=== PATIENT | male | born 1950 | race Caucasian/White ===

== ENCOUNTER → 2017-04-15 | Outpatient (CLI) | payer OTHER | LOC: BHFA 14:15 | PROVIDERS: ATTEND Internal Medicine Interventional Cardiology | DX: E78.5 Hyperlipidemia, unspecified (principal); Z95.0 Presence of cardiac pacemaker ==

== ENCOUNTER 2017-12-20 23:15 | Inpatient (IN) | payer OTHER ==
[2017-12-20] MEDS ORDERED: ONDANSETRON DISINTEGRATING 4 MG TAB PO PRN (23:28)
[2017-12-20] MEDS ORDERED: MAGNESIUM HYDROXIDE 30 ML UDCUP PO PRN (23:28)
[2017-12-20] MEDS ORDERED: LACTULOSE 20 GM/30 ML UDCUP PO PRN (23:28)
[2017-12-20] MEDS ORDERED: BISACODYL 10 MG SUPP PR PRN (23:28)
[2017-12-20] MEDS ORDERED: ONDANSETRON 4 MG/2 ML VIAL IVP PRN (23:28)
[2017-12-20] MEDS ORDERED: NS 1,000 ML IV SCH (23:28)
[2017-12-20] MEDS ORDERED: LORazepam 2 MG/ML INJ IVP PRN (23:28)
[2017-12-20] MEDS ORDERED: ACETAMINOPHEN 325 MG TAB PO PRN (23:28)
[2017-12-20] MEDS ORDERED: POLYETHYLENE GLYCOL 3350 17 GM PKT PO PRN (23:28)
[2017-12-20] MEDS: OXYCODONE/APAP 5/325 TAB PO PRN (23:50)
[2017-12-21] MEDS ORDERED: HYDROmorphone HCL/NS 0.5 MG/ML SYR IVP PRN (00:26)
[2017-12-21] MEDS: OXYMETAZOLINE 30 ML NASAL SPRAY EACHNARE SCH ×3 (00:32→22:23)
--- NOTE | 2017-12-21 00:58 | GHP ---
[f rep st] HISTORY AND PHYSICAL DATE OF ADMISSION: 12/20/2017 CHIEF COMPLAINT: Hip fracture, leg pain, ankle pain. HISTORY OF PRESENT ILLNESS: This patient is a 67-year-old gentleman who was skiing near [place] in [place] and unfortunately crashed into a tree. He hit with his right hip. He was wearing a helmet. After an difficult extraction from accident site he was ultimately transported back to [place], [place]. His accident occurred approximately 1:30pm on December 19, 2017 corrected for our local time. . I am seeing him at bedside, and I received report from the transporting service. He has done well on his transport except for severe pain. He has been given 5 mg of morphine hourly. He has had low oxygen saturations and has needed to be on oxygen, but has corrected well. He is being admitted to the hospital with plans for total hip replacement tomorrow with Dr. Pettit. He currently does not have chest pain or shortness of breath. He does have a little bit of dry cough. He does have a dry stuffy nose. PAST MEDICAL HISTORY: Significant for multiple orthopedic injuries and surgeries. 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 He has followed with our local ID docs, and also Cardiology (Dr. Vallejo) for this. He has had multiple episodes of diverticulitis (>4 and likely will need surgery at some point). He wears a hearing aid, which he does not have today as unfortunately it was not transported in the heat of the moment. I REVIEW OF SYSTEMS: As above. FAMILY HISTORY: Not pertinent FH for his current situation. SOCIAL HISTORY: He is . His is at bedside. He has no drug or alcohol problem. IMMUNIZATIONS: He has had the recent flu shot. He has had Prevnar and Pneumovax 23. His last tetanus appears to be in 2008, although he may have had something newer; that is the newest I can find in his chart. MEDICATIONS: Penicillin-Vee K 500 mg twice a day, melatonin p.r.n. sleep. ALLERGIES: No known drug allergies. PHYSICAL EXAMINATION: VITAL SIGNS: Current stable, he is afebrile. GENERAL: He is in a fair amount of pain. Transfer from stretcher to bed was extremely excruciating for him with screaming. NEUROLOGIC: Cranial nerves 2-12 are grossly intact, other than his hearing. He does not have his hearing aid but is still able to have a conversation. He also is wearing glasses; he cannot see well without this. HEENT: Oropharynx is very dry. Nasal mucosa are very stuffy. LUNGS: Clear to auscultation bilaterally. Normal work of breathing. No adventitious sounds. He does have a little bit of a cough. HEART: Regular rate and rhythm. No murmurs. ABDOMEN: Soft and nontender, no masses. EXTREMITIES: Right lower extremity is slightly swollen and warm. He has had significant pain with any right leg movements. His right ankle is swollen, as compared to the left, and has significant pain with any movement. Good rights sided distal pulses/neuro. DATA REVIEWED: Most recent blood work was performed December 19, 2017, at 5:39 p.m at outside hospital. CBC demonstrates an elevated white blood cell count at 13 with high neutrophils, hemoglobin is 156 g/L, and hematocrit is 0.47 L/L, platelets are normal at 201. INR is normal at 0.9. Venous blood gas shows nothing of concern. Sodium, potassium, chloride are normal. CO2 is normal. Anion gap is normal. Blood urea slightly high at 8.9 mmol/L with upper limit of normal being 7.01. Creatinine is 73 micromol/L, within the normal 58-110. CK is elevated at 397, upper limit of normal 170. Alcohol/ethanol is undetectable. Liver function is otherwise normal. Lipase is normal. Urinalysis shows small blood and small ketones. Blood typing is O, Rh positive. IMAGING: As below. IMPRESSION: 1. Traumatic impacted right subcapital hip fracture. This is confirmed on a plain film. Per outside hospital radiology, there is an impacted right subcapital hip fracture. No other acute fractures are evident. The right hip remains well aligned with preservation of joint space. Pelvic rings are intact. Single AP view of the left hip is unremarkable. A CT scan of the chest , abdomen, and pelvis showed potential non surgical pelvic ring fx. He will be evaluated on Tuesday by orthopedics and hopefully surgery on Tuesday as well. He is neurovascularly intact. He is in significant pain and we will start oxycodone acetaminophen 10 mg every 4 hours and will supplement with morphine and then dilaudid if needed. Per transfer report CCN, he has needed 5 mg an hour of morphine to keep his pain under fair. control. The plan is for surgery with Dr. Pettit at some point tomorrow, if that can be arranged. 2. Question right ankle injury. He is exquisitely tender on the outside right ankle, there is swelling and there is a lot of pain with movement of the ankle. We will put a partial immobilizer on the right ankle for the time being and then xray it and ask that ortho evaluate. 3. Deep venous thrombosis prophylaxis. He is at moderate risk primarily related to his age, injury, and impending surgery. Because of his significant transport time, time from injury, and also difficult extraction from site of accident, I will give him a single dose of Lovenox 30 mg tonight as soon as available but no later than 2amt. His surgery is not likely to happen before noon on December 21. This will give it time to be safe for surgery. 4. The patient will be made n.p.o. after 3 a.m. this morning. 5. Mild cough - lungs sound normal, 02 sats slightly low off of oxygen, but he has a fair amount of narcotic in his system. Will follow, but may need more evaluation. No fever. No pulmonary production. 6. Laboratory Data: At this point, I do not feel the patient needs any other labs. We have labs from yesterday from the [facility], and these will be scanned to chart. We may duplicate and repeat for the sake of having labs in our standard system. 7. I have taken his imaging disks to Radiology to be overread, and these will be uploaded into our system so that our radiologists can read, and also Orthopedics can review. 8. Severe nasal congestion. I will give him a dose of Afrin nasal spray tonight. 9. Cardiac Clearance: The patient does have a pacemaker with right ventricular and left ventricular lead. His last pacemaker check was normal. He has no known cardiac disease. He did have a coronary angiogram that showed no soft or hard plaque in 2014. Interestingly on his CT of his abdomen and pelvis, there did seem to be some calcified plaque in his aorta, so our cardiac approach may need to be re-thought. He is extremely active with high level exercise with no chest pain or shortness of breath prior to this injury, and I do not feel he needs any other testing prior to surgery. We do have an electrocardiogram in his chart from the [facility]. 10. 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 [id number] bid jail vs hardware removal. The new total hip will complicate the situation and because of the significant issues a joint infection would cause, I will ask ID to see him and comment. In the meantime I am continuing his 500mg PCN bid. 11. Code Status: He is full code. /[id number]/MODL MTDD
[2017-12-21] MEDS: PENICILLIN VK 500 MG TAB PO SCH ×4 (01:21→23:02)
[2017-12-21] MEDS ORDERED: ENOXAPARIN 30 MG/0.3 ML SYR SC ONE (02:00)
[2017-12-21 05:27] LABS: PLATELET COUNT 140 10^3/uL (150-400)
[2017-12-21 05:36] LABS: INR 1.12 (0.83-1.16); PROTIME(PATIENT) 14.6 SEC (12.0-15.0)
[2017-12-21] MEDS: OXYCODONE/APAP 5/325 TAB PO PRN ×3 (06:25→22:47)
[2017-12-21] MEDS: SENNOSIDES/DOCUSATE SODIUM TAB PO SCH ×2 (10:04→22:22)
--- NOTE | 2017-12-21 10:24 | PCMIDPN ---
Assessment/Plan: Assessment/Plan: * Perioperative infectious disease risk assessment: Patient on suppressive penicillin for prior pacemaker infection due to P. acnes. No signs or symptoms of recurrent infection while on suppressive penicillin. Do not think this will significantly modify his risk of postoperative hip infection above typical risk associated with hip replacement. Discussed that suspect would be unlikely to develop breakthrough bacteremia with P. acnes while on suppressive penicillin which would then pose risk for secondary seeding of hip replacement. Recommend standard antibiotic prophylaxis with cefazolin lou procedure. 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 Continue suppressive penicillin twice daily. Clinical findings and plan discussed with Dr. Pettit and Dr. Wallace. 12/21/17 10:21 12/21/17 10:25 12/21/17 10:26 Subjective: Asked to see patient by Dr. Wallace for infectious diseases perioperative risk assessment prior to hip replacement related to traumatic hip fracture sustained while skiing in [place]. Patient known to me from prior care for pacemaker pocket infection due to P. acnes for which he has been on suppressive penicillin twice daily. Please see my note dated 07/14/2015 for prior details. Patient has been on suppressive penicillin twice daily without difficulties. No pacemaker erythema, tenderness or drainage. Patient sustained a right-sided hip fracture all skiing on 12/19/17 which will require hip replacement for management. Patient with recent fever, chills or night sweats. No history MRSA infection. Prior to hip fracture, was feeling well. Objective: Vital Signs Temp Pulse Resp BP Pulse Ox 36.9 C 63 16 112/54 L 95 12/21/17 08:00 12/21/17 08:00 12/21/17 08:00 12/21/17 08:00 12/21/17 08:00 Laboratory Results 12/21/17 04:45 12/21/17 04:45 12/20/17 12/21/17 12/22/17 05:59 05:59 05:59 Intake Total 100 Output Total 800 Balance -700 Penicillin 500 mg orally twice daily - Physical Exam General Appearance: alert, no apparent distress EENT: No thrush, No conjunctival petechiae Respiratory: lungs clear, No respiratory distress Cardiac/Chest: regular rate, rhythm, other (Pacemaker site without erythema, edema, tenderness, or drainage), No systolic murmur Extremities: other (No skin breakdown over right hip) ICD10 Worksheet Patient Problems: Problems Problem Status Onset Lower GI bleed Acute Pacemaker Acute Second degree atrioventricular block Acute
--- NOTE | 2017-12-21 10:54 | ASMTCMCOM ---
CM Note CM Note Notes: Pt to OR today for hip fracture after ski accident in [place]. OT/PT evals pending. ID consulting for perioperative risk assessment. Pt has . CM to follow for d/c needs. Date Signed: 12/21/2017 10:54 AM Electronically Signed By:ANATOLIY Wei
[2017-12-21] MEDS ORDERED: ceFAZolin 1 GM/5 ML SYR ONE (13:14)
[2017-12-21] MEDS ORDERED: MIDAZOLAM 2 MG/2 ML VIAL IVP ONE (14:16)
[2017-12-21] MEDS ORDERED: fentaNYL 100 MCG/2 ML INJ IVP ONE (14:17)
--- NOTE | 2017-12-21 14:18 | PDANEPAE ---
ANE History of Present Illness r hip fracture ANE Past Medical History - Pulmonary History Hx Oxygen in Use at Home: No Hx Sleep Apnea: No Sleep Apnea Screening Result - Last Documented: Positive - Endocrine History Hx Diabetes: No - Chronic Pain History Chronic Pain: No ANE Review of Systems Review of Systems: - Pacemaker Pacemaker Retinal Surgeon: Medtronic Pacemaker Model: Medtronic Adapta L ADDRL 1 Pacemaker Mode: DDDR Date Pacemaker Last Checked: 12/21/17 ANE Patient History - Allergies Allergies/Adverse Reactions: No Known Allergies Allergy (Verified 09/20/14 07:48) - Home Medications Home Medications: Melatonin [Melatonin 3 MG (*)] 3 mg PO HS PRN 09/20/14 [Last Taken Unknown] Penicillin V Potassium [Pen Vk 500mg (*)] 500 mg PO BID 12/21/17 [Last Taken Unknown] - NPO status NPO Since - Liquids (Date): 12/21/17 NPO Since - Liquids (Time): 03:00 NPO Since - Solids (Date): 12/21/17 NPO Since - Solids (Time): 03:00 - Smoking Hx Smoking Status: Former smoker ANE Labs/Vital Signs - Labs Result Diagrams: 12/21/17 04:45 12/21/17 04:45 - Vital Signs Blood Pressure: 110/62 Heart Rate: 57 Respiratory Rate: 16 O2 Sat (%): 95 Height: 187.96 cm Weight: 84.822 kg ANE Physical Exam - Airway Neck exam: FROM Mallampati Score: Class 1 Mouth exam: normal dental/mouth exam - Pulmonary Pulmonary: no respiratory distress - Cardiovascular Cardiovascular: regular rate and rhythym - ASA Status ASA Status: III ANE Anesthesia Plan Anesthesia Plan: general endotracheal anesthesia
[2017-12-21] MEDS ORDERED: ROCURONIUM 50 MG/5 ML VIAL ONE ×2 (14:21→18:23)
[2017-12-21] MEDS ORDERED: PROPOFOL 200 MG/20 ML VIAL ONE (14:21)
[2017-12-21] MEDS ORDERED: HYDROmorphONE/DILAUDID 2 MG/ML INJ ONE (14:21)
[2017-12-21] MEDS ORDERED: fentaNYL 100 MCG/2 ML INJ ONE ×3 (14:21→18:39)
[2017-12-21] MEDS ORDERED: POVIDONE-IODINE 20 ML in SODIUM CL IRRIG SOLUTION 500 ML IRR ONE (15:33)
[2017-12-21] MEDS ORDERED: ROPIVACAINE 0.2% 80 MG, EPINEPHrine 0.2 MG, KETOROLAC TROMETHAMINE 30 MG in SYRINGE 0 ML IU ONE (15:33)
[2017-12-21] MEDS ORDERED: TRANEXAMIC ACID 3,000 MG in NS (SYRINGE) 50 ML IRR ONE (15:33)
[2017-12-21] MEDS ORDERED: ceFAZolin 2 GM/SWFI 2 GM/20 ML SYR IVP ONE (16:06)
[2017-12-21] MEDS ORDERED: MELATONIN 3 MG TAB PO PRN (16:06)
--- NOTE | 2017-12-21 17:38 | HOSPPROG ---
Hospitalist Progress Note Assessment/Plan: Attempted to see pt, but he was in OR this afternoon. Right hip fracture - GAURANG today per ortho. Right ankle effusion - f/u ortho recs Presence of pacemaker with h/o pocket infection - appreciate ID consult, plan for routine pre-op atbx pplx DVT PPLX - per surgery Full code Dispo - cont inpt Objective: Vital Signs Temp Pulse Resp BP Pulse Ox 36.6 C 57 L 16 110/62 95 12/21/17 14:46 12/21/17 14:46 12/21/17 14:46 12/21/17 14:46 12/21/17 14:46 Laboratory Results 12/21/17 04:45 12/21/17 04:45 12/20/17 12/21/17 12/22/17 05:59 05:59 05:59 Intake Total 100 Output Total 800 Balance -700 PT 14.6 SEC (12.0-15.0) 12/21/17 04:45 INR 1.12 (0.83-1.16) 12/21/17 04:45 ICD10 Worksheet Patient Problems: Problems Problem Status Onset Lower GI bleed Acute Pacemaker Acute Second degree atrioventricular block Acute
[2017-12-21] MEDS ORDERED: PROMETHAZINE HCL 25 MG/ML INJ IVP PRN (18:09)
[2017-12-21] MEDS ORDERED: HYDROmorphONE/DILAUDID 1 MG/ML INJ IVP PRN (18:09)
[2017-12-21] MEDS ORDERED: ONDANSETRON 4 MG/2 ML VIAL IVP PRN ×2 (18:09→18:48)
[2017-12-21] MEDS ORDERED: fentaNYL 100 MCG/2 ML INJ IVP PRN (18:09)
[2017-12-21] MEDS ORDERED: NALOXONE HCL 0.4 MG/ML INJ IVP PRN (18:09)
[2017-12-21] MEDS ORDERED: DEXAMETHASONE 4 MG/ML VIAL ONE (18:23)
[2017-12-21] MEDS ORDERED: ONDANSETRON 4 MG/2 ML VIAL ONE (18:23)
--- NOTE | 2017-12-21 18:31 | POSTANESTH ---
Post Anesthetic Evaluation Cardiovascular Status: Normal, Stable Respiratory Status: Normal, Stable Level of Consciousness/Mental Status: Can Participate in Eval Pain Control: Adequate, Prn Tx Ordered Nausea/Vomiting Control: Adequate, Prn Tx Ordered Complications Possibly Related to Anesthesia: None Noted
[2017-12-21] MEDS ORDERED: HYDROmorphONE/DILAUDID 1 MG/ML INJ ONE (18:39)
[2017-12-21] MEDS ORDERED: DIPHENOXYLATE/ATROPINE LOMOTIL 1 TAB PO PRN (18:48)
[2017-12-21] MEDS ORDERED: diphenhydrAMINE 25 MG CAP PO PRN (18:48)
[2017-12-21] MEDS ORDERED: METOCLOPRAMIDE 10 MG/2 ML VIAL IVP PRN (18:48)
[2017-12-21] MEDS ORDERED: PROMETHAZINE HCL 25 MG SUPPR PR PRN (18:48)
--- NOTE | 2017-12-21 19:42 | GOP ---
[f rep st] OPERATIVE REPORT DATE OF OPERATION: SURGEON: Martin Pettit MD BUCKLE ATTACHER: TERESA Corado LSA. ANESTHESIOLOGIST: Viktor Mitchell MD. PREOPERATIVE DIAGNOSIS: Right displaced femoral neck fracture. POSTOPERATIVE DIAGNOSIS: Right displaced femoral neck fracture. PROCEDURE PERFORMED: Right total hip arthroplasty. FINDINGS: INDICATIONS: The patient is a 67-year-old male who fractured his right femoral neck skiing in [place] . He has been medivaced to [facility]. His x-rays show a displaced right femoral ne ck fracture. He is a very active individual, including skiing and cycling. I do not think the femor al head is viable. I think he would also struggle with a hemiarthroplasty given his activity level, so I have recommended a total hip replacement, have reviewed benefits and risks of surgery. He has s igned his consent form and wishes to proceed. DESCRIPTION OF PROCEDURE: The patient was taken to the operating room, placed supine on the operatin g table, and placed under general anesthetic. He received 2 g of IV Ancef preoperatively. He was ro lled left side down on a pegboard and supported with 4 pegs, and the right hip was prepped and draped free in the usual fashion. I used a posterior approach to the right hip. I made a gently curving i ncision centered on the posterior aspect of the greater trochanter. Dissection was carried down thro ugh subcutaneous tissue and I incised through the ITB band, carried this through the gluteal fascia. I exposed the external rotators, preserving the sciatic nerve posteriorly. I divided the piriformis attachment and the more distal external rotators and I tagged the tendons. I also opened the capsul e and tagged the edges of that as well with FiberWire. Because of the fracture, I did not have a pre dislocation leg length. I used a hip skid and gently levered the head using it and another retractor and was able to bring it up into the wound and removed the soft tissue attachments. This fracture d id leave a fairly long neck, so I was able to make a femoral neck cut as if this was a standard prima ry hip replacement, leaving about 15-20 mm of calcar. I then placed anterior posterior retractors. I cleaned up soft tissues around the labrum. I reamed the acetabulum, deepening it down to the true wall and then enlarged until I felt I was back to bleeding bone and had removed the articular cartila ge of the acetabulum. The quality of bone was excellent. I reamed up to 53, I press-fit a Biomet Re generex cup with limited holes superiorly, 40 degrees of opening angle and about 20-25 degrees of ant eversion, and this was a solid fit in the pelvis. I placed a trial liner. I then turned my attentio n to the femoral side. I gained access to the canal with a box chisel and an awl. I reamed progress ively up to a size 14 broach. This was a good tight fit and snug rotationally. I did trial reductio ns, knowing I was in the right range for leg length. I then went back and placed a Max-Rom +3 liner in the cup. I placed a Taperloc complete primary femoral porous-coated stem, size 14, and this was a n excellent fit. I then repeated trial reductions. I found that I needed the +6 length to provide c linically a good leg length and stability. I chose a 36 ceramic head, Biolox +6 neck. This was plac ed on the trunnion and the hip was reduced. The hip had excellent stability past 90 degrees of flexi on, even adding adduction and some internal rotation. The leg lengths were a clinical judgment call. Clinically, on the table, the leg lengths looked even. The radiograph (I took an AP pelvis in the operating room) showed perhaps a little lengthening, but I felt I needed that position and length for the stability that I had achieved and tested dynamically. I used copious antibiotic irrigation. I drilled 2 holes in the posterior aspect of the trochanter and threaded the sutures from the capsule a s well as the short rotators through these and tied these with multiple knots. I used an irrigation with tranexamic acid. The wound was dry. I did not need a drain. I closed the fascia with interrup vandana [id number] sutures of 0 [place]. Subcutaneous tissue was closed with 2-0 Monocryl, and th e skin was closed in subcuticular fashion with a Quill self locking suture. This is absorbable. I f inished the wound closure with glue, Telfa, and a big Tegaderm. There were no complications. The es timated blood loss was about 4-500 cc. No drains. Specimens included the excised femoral head. All counts were correct. Patient was taken in stable condition to recovery room. Of note, on the hospi carmen diaz, his leg lengths looked very close. My surgical territory manager, Luis Geiger, was a medical necessity to accomplish this total hip replaceme nt for a complex displaced femoral neck fracture. SUMMARY OF COMPONENTS: This is a Biomet hip system. The acetabulum is a Regenerex 54 outer diameter . The liner is an anti Oxinium infused +3 to accommodate a 36 mm head. The head is a ceramic head, Biolox, 36 diameter. The neck is +6. The stem is a Taperloc complete primary femoral porous-coated stem, a size 14. /[id number]/MODL
[2017-12-21] MEDS ORDERED: TEARS/DEXTRAN 70/HYPROMELLOSE 15 ML OPHT.BTL EACHEYE PRN ×2 (20:11→21:30)
[2017-12-21] MEDS ORDERED: ceFAZolin 2 GM/DEXTROSE 100 ML IV SCH (22:00)
[2017-12-21] MEDS: FAMOTIDINE 20 MG TAB PO SCH (22:23)
[2017-12-21] MEDS: ASPIRIN 325 MG TAB PO SCH (22:23)
[2017-12-21] MEDS: ceFAZolin 2 GM/SWFI 2 GM/20 ML SYR IVP SCH (22:23)
[2017-12-21] MEDS: TEMAZEPAM 15 MG CAP PO PRN (22:46)
[2017-12-22] MEDS: CYCLOBENZAPRINE 10 MG TAB PO PRN (01:25)
[2017-12-22] MEDS: oxyCODONE IR 5 MG TAB PO PRN ×3 (01:25→18:11)
[2017-12-22] MEDS: ceFAZolin 2 GM/SWFI 2 GM/20 ML SYR IVP SCH (05:42)
--- NOTE | 2017-12-22 07:47 | SOAPPROG ---
SOAP Progress Note Assessment/Plan: Assessment: 12/22/17, POD#1, R GAURANG, pain controlled, Hct 33.8, dressing dry, post op xray looks fine, xrays r ankle neg for fx Plan: 12/22/17 07:45 up with PT/OT, home when safely mobile Objective: Vital Signs Temp Pulse Resp BP Pulse Ox 36.6 C 62 16 112/65 97 12/22/17 07:24 12/22/17 07:24 12/22/17 07:24 12/22/17 07:24 12/22/17 07:24 Laboratory Results 12/22/17 05:09 12/21/17 04:45 12/21/17 12/22/17 12/23/17 05:59 05:59 05:59 Intake Total 100 2120 Output Total 800 950 Balance -700 1170 PT 14.6 SEC (12.0-15.0) 12/21/17 04:45 INR 1.12 (0.83-1.16) 12/21/17 04:45 ICD10 Worksheet Patient Problems: Problems Problem Status Onset Lower GI bleed Acute Pacemaker Acute Second degree atrioventricular block Acute
[2017-12-22] MEDS: ASPIRIN 325 MG TAB PO SCH (08:30)
[2017-12-22] MEDS: FAMOTIDINE 20 MG TAB PO SCH ×2 (08:30→20:27)
[2017-12-22] MEDS: PENICILLIN VK 500 MG TAB PO SCH ×2 (08:31→20:28)
[2017-12-22] MEDS: OXYMETAZOLINE 30 ML NASAL SPRAY EACHNARE SCH ×2 (08:31→20:27)
[2017-12-22] MEDS: SENNOSIDES/DOCUSATE SODIUM TAB PO SCH ×2 (08:31→20:27)
--- NOTE | 2017-12-22 08:53 | HOSPPROG ---
Hospitalist Progress Note Assessment/Plan: Right hip fracture - traumatic, skier vs tree. S/P GAURANG, POD #1 -PT/OT, pain control Right ankle effusion - currently splinted, no fracture on xray, ?sprain vs ligament instability. -f/u ortho recs Hypoxemia - suspect post-op atelectasis, was on 4 LPM overnight, but 90% on room air this am -IS -consider CXR if not resolving Presence of pacemaker with h/o pocket infection - appreciate ID consult, routine lou-op atbx pplx Wenckebach - stable DVT PPLX - per surgery Full code Dispo - cont inpt, PT/OT, possible d/c in am Subjective: Pt doing well. No pain. Appetite good. Had good uop overnight. No fevers or cough. Objective: Vital Signs Temp Pulse Resp BP Pulse Ox 36.6 C 62 16 112/65 97 12/22/17 07:24 12/22/17 07:24 12/22/17 07:24 12/22/17 07:24 12/22/17 07:24 Laboratory Results 12/22/17 05:09 12/21/17 04:45 12/21/17 12/22/17 12/23/17 05:59 05:59 05:59 Intake Total 100 2120 Output Total 800 950 Balance -700 1170 PT 14.6 SEC (12.0-15.0) 12/21/17 04:45 INR 1.12 (0.83-1.16) 12/21/17 04:45 - Physical Exam Constitutional: no apparent distress Eyes: PERRL Ears, Nose, Mouth, Throat: moist mucous membranes Cardiovascular: regular rate and rhythym Respiratory: no respiratory distress, clear to auscultation Gastrointestinal: normoactive bowel sounds, soft, non-tender abdomen Skin: warm Musculoskeletal: other (RLE splinted, 2+ pulses, warm, well perfused) Neurologic: AAOx3 Psychiatric: interacting appropriately ICD10 Worksheet Patient Problems: Problems Problem Status Onset Lower GI bleed Acute Pacemaker Acute Second degree atrioventricular block Acute
[2017-12-22] MEDS: ACETAMINOPHEN 500 MG TAB PO SCH ×2 (09:36→18:10)
[2017-12-22] MEDS: TEMAZEPAM 15 MG CAP PO PRN (20:27)
[2017-12-23 00:03] VITALS: RESP 16
[2017-12-23] MEDS: ACETAMINOPHEN 500 MG TAB PO SCH ×2 (00:19→10:00)
[2017-12-23] MEDS: CYCLOBENZAPRINE 10 MG TAB PO PRN (00:20)
[2017-12-23] MEDS: oxyCODONE IR 5 MG TAB PO PRN ×3 (00:21→10:04)
[2017-12-23 09:28] VITALS: BP 120/67; TEMP 98.7
--- NOTE | 2017-12-23 09:53 | SOAPPROG ---
SOAP Progress Note Assessment/Plan: Assessment: 12/22/17, POD#1, R GAURANG, pain controlled, Hct 33.8, dressing dry, post op xray looks fine, xrays r ankle neg for fx 12/23/17. POD#2, dressing clean, has been up, ankle sore, should use brace when up Plan: 12/22/17 07:45 up with PT/OT, home when safely mobile 12/23/17 09:50 d/c home, norco, asa 325, celebrex, f/u 1 week with me, ankle brace, hip precautions Objective: Vital Signs Temp Pulse Resp BP Pulse Ox 37.1 C 74 16 120/67 95 12/23/17 08:00 12/23/17 08:00 12/23/17 08:00 12/23/17 08:00 12/23/17 08:00 Laboratory Results 12/23/17 04:59 12/21/17 04:45 12/22/17 12/23/17 12/24/17 05:59 05:59 05:59 Intake Total 2120 1250 Output Total 950 650 Balance 1170 600 PT 14.6 SEC (12.0-15.0) 12/21/17 04:45 INR 1.12 (0.83-1.16) 12/21/17 04:45 ICD10 Worksheet Patient Problems: Problems Problem Status Onset Lower GI bleed Acute Pacemaker Acute Second degree atrioventricular block Acute
[2017-12-23] MEDS: FAMOTIDINE 20 MG TAB PO SCH (10:01)
[2017-12-23] MEDS: SENNOSIDES/DOCUSATE SODIUM TAB PO SCH (10:01)
[2017-12-23] MEDS: PENICILLIN VK 500 MG TAB PO SCH (10:01)
[2017-12-23] MEDS: OXYMETAZOLINE 30 ML NASAL SPRAY EACHNARE SCH (10:02)
[2017-12-23] MEDS: ASPIRIN 325 MG TAB PO SCH (10:06)
[2017-12-23 13:30] VITALS: PULSE 76; O2SAT 85
--- NOTE | 2017-12-23 14:48 | ASMTCMCOM ---
CM Note CM Note Notes: Pt medically stable for d/c, pt requests wc van home. [place] scheduled for 1300 and pt/ aware of payment. No CM d/c needs identified. Date Signed: 12/23/2017 02:47 PM Electronically Signed By:ANATOLIY Wei
--- NOTE | 2017-12-23 14:50 | ASDISCHSUM ---
Discharge Information Plan Status:Home with No Needs Medically Cleared to Leave: Discharge Date:12/23/2017 01:14 PM CM D/C Disposition:Home, Routine, Self-Care ADT D/C Disposition:Home, Routine, Self-Care Projected Discharge Date:12/23/2017 01:14 PM Transportation at D/C:Wheelchair Van Discharge Delay Reason: Follow-Up Date:12/23/2017 01:14 PM Discharge Slot: Final Diagnosis: Placement Information Patient Contact Information Contact Name:FARA Relationship: Address:[address] [place] [address] City:[place] Alternate Phone: [facility]/Zip Code:[place] [address] Email: Financial Information Financial Class:Medicare Primary Plan Desc:MEDICARE INPATIENT Primary Plan Number:[id number] Secondary Plan Desc:DUC Secondary Plan Number:[id number] Assessment Information [facility] CM Progress Note CM Note CM Note Notes: Pt to OR today for hip fracture after ski accident in [place]. OT/PT evals pending. ID consulting for perioperative risk assessment. Pt has . CM to follow for d/c needs. Date Signed: 12/21/2017 10:54 AM Electronically Signed By:ANATOLIY Wei [facility] CM Progress Note CM Note CM Note Notes: Pt medically stable for d/c, pt requests [facility]. [place] scheduled for 1300 and pt/ aware of payment. No CM d/c needs identified. Date Signed: 12/23/2017 02:47 PM Electronically Signed By:ANATOLIY Wei Intervention Information Intervention Type:*IM-Signed Date of Service:12/23/2017 11:01 AM Patient Type:Inpatient Staff Member:Hina Tesfaye Hours: Discipline: Severity: Comment:
--- NOTE | 2017-12-23 17:05 | GDS ---
[f rep st] DISCHARGE SUMMARY DISCHARGE DIAGNOSES: 1. Right hip fracture, status post total hip arthroplasty. 2. Right ankle sprain. 3. Presence of a pacemaker. 4. Wenckebach. CONSULTANTS: Dr. Martin Pettit, orthopedic surgery. HISTORY: For details, please see dictated history and physical dated December 21, 2017. 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 He suffered a right hip fracture and was Medi-evac'ed to [facility] for admission and care by his orthopedic surgeon. HOSPITAL COURSE: Patient admitted to the ortho unit. Orthopedic Surgery was obtained. He went to [facility] for a GAURANG. He also had a right ankle injury which was thought to be a sprain. I reviewed the imaging and discussed the case with Dr. Martin Pettit, and he will be splinted in an ankle immobilizer with outpatient followup. He did well postoperatively without any complications. DISPOSITION: Patient is discharged home in stable condition. FOLLOWUP: 1. Dr. Martin Pettit, Orthopedic Surgery. 2. Dr. Kemal Wallace, Primary Care. 3. Dr. Rey Vallejo, Cardiology. DISCHARGE MEDICATIONS: Please see [facility] for completed outpatient medication list. New medications on discharge include: 1. 325 mg p.o. daily, #21, no refills, for prophylaxis. 2. Celebrex 200 mg p.o. daily, #30, no refills. 3. Senokot 1-2 tabs p.o. twice daily, #60, no refills. I believe Dr. Pettit also prescribed him with a prescription for Vicodin. He will continue all other outpatient medications as per his prior. /[id number]/MODL
== END 2017-12-23 13:14 | disposition home or self-care (01) | DRG 470 ==
LOC: F3N 23:15
PROVIDERS: ADMIT Internal Medicine; ATTEND Internal Medicine
PROC: 0SR90JZ Replacement of Right Hip Joint with Synthetic Substitute, Open Approach (ICD-10-PCS; principal; 2017-12-21 14:15)
DX: S72.011A Unspecified intracapsular fracture of right femur, initial encounter for closed fracture (principal); S93.401A Sprain of unspecified ligament of right ankle, initial encounter; V00.322A Snow-skier colliding with stationary object, initial encounter; Y93.23 Activity, snow (alpine) (downhill) skiing, snowboarding, sledding, tobogganing and snow tubing; Y92.838 Other recreation area as the place of occurrence of the external cause; Z95.0 Presence of cardiac pacemaker
CPT/HCPCS: 92523-GN; 97116-GP; 97161-GP; 97166-GO; 97535-GO; G8978-GP-CI; G8978-GP-CJ; G8979-GP-CI; G8980-GP-CI; G8987-GO-CJ; G8988-GO-CI; G8989-GO-CI; G9165-GN-CH; G9166-GN-CH; G9167-GN-CH; J0171; J0690; J1100; J1170; J1650; J1885; J2060; J2250; J2270; J2405; J2704; J2795; J3010

== ENCOUNTER → 2018-04-07 | Outpatient (CLI) | payer OTHER | LOC: BHFA 10:00 | PROVIDERS: ATTEND Internal Medicine Interventional Cardiology | DX: I44.1 Atrioventricular block, second degree (principal); Q23.1 Congenital insufficiency of aortic valve; Z95.0 Presence of cardiac pacemaker ==

== ENCOUNTER 2018-10-02 06:01 | Day surgery (SDC) | payer OTHER ==
--- NOTE | 2018-10-01 18:26 | GHP ---
DATE OF ADMISSION: 10/02/2018 HISTORY OF PRESENT ILLNESS: The patient is a 68-year-old male who presents with now chronic left shoulder concerns. He has impingement findings with arm elevation, rotator cuff dysfunction, symptoms referable to the AC joint as well. Numerous conservative measures have been tried, including injection and physical therapy. He continues to have significant discomfort. He has a pacemaker for a bradyarrhythmia, we can therefore not MRI his shoulder. He did have a good quality CT arthrogram in 2017 that shows AC joint arthrosis. No obvious full-thickness cuff tear and no obvious articular cartilage or labral abnormality. Biceps appears to be localized appropriately; that is our best information. His exam shows tenderness around the AC joint capsule, as well as impingement findings. He has maintained reasonable rotator cuff strength. Left shoulder arthroscopy is planned. An arthroscopic decompression, a Vita procedure, rotator cuff, labral, and biceps work as needed. PAST MEDICAL HISTORY: Remarkable for his heart block and the need for a pacemaker. He has had a pacemaker become infected. It had to be replaced and the leads were not changed out, so he is on chronic suppressive penicillin. He also used diclofenac. He has had quite a few surgeries. This includes a tonsillectomy, four hand procedures, he has had multiple shoulder procedures, he has had a hernia repair, pacemaker installed x2 and a total hip arthroplasty on the right. ALLERGIES: No known drug allergies. SOCIAL HISTORY: He is a nonsmoker. REVIEW OF SYSTEMS: Positive from a cardiopulmonary standpoint for his bradyarrhythmia and he has a pacemaker. PHYSICAL EXAM: GENERAL: The patient is a well-developed, well-nourished male in no apparent distress. HEAD AND NECK: Normocephalic, atraumatic. CHEST: Clear. CARDIOVASCULAR: Regular rate and rhythm. ABDOMEN: Soft. NEUROLOGIC: He is alert and oriented x3. EXTREMITIES: Exam of the left shoulder shows impingement findings. He has maintained rotator cuff strength, though he does have some discomfort on supraspinatus testing. He has discomfort and impingement with circumduction. He has some tenderness around the AC joint capsule. Of note, I have done a Vita procedure that has helped with his symptoms on the opposite shoulder. IMPRESSION: Left shoulder with chronic impingement and acromioclavicular joint arthrosis. PLAN: Left shoulder arthroscopy, arthroscopic decompression, Vita procedure , rotator cuff, labral and biceps work as needed. Benefits and risks of surgery have been reviewed with the patient. He has signed a consent form and wishes to proceed. /[id number]/MODL MTDD
[2018-10-02] MEDS ORDERED: LR 1,000 ML IV SCH (06:10)
[2018-10-02] MEDS ORDERED: PREGABALIN 150 MG CAP PO ONE (06:10)
[2018-10-02] MEDS ORDERED: ACETAMINOPHEN 500 MG TAB PO ONE (06:10)
[2018-10-02] MEDS ORDERED: ceFAZolin 2 GM/DEXTROSE 100 ML IV ONE (06:10)
[2018-10-02] MEDS ORDERED: LR 1,000 ML IV ONE (06:11)
[2018-10-02] MEDS ORDERED: EPINEPHrine 30 MG/30 ML MDV (0.1 MG/0.1 ML) ONE (06:55)
[2018-10-02] MEDS ORDERED: BUPIVACAINE/EPI 0.25% 30 ML SDV ONE (06:55)
[2018-10-02] MEDS ORDERED: BUPIVACAINE 0.25% 10 ML SDV ONE (06:55)
[2018-10-02] MEDS ORDERED: MIDAZOLAM 2 MG/2 ML VIAL IVP ONE (07:07)
--- NOTE | 2018-10-02 07:09 | PDANEPAE ---
ANE Past Medical History - Cardiovascular History Hx Hypertension: No Hx Arrhythmias: Yes Hx Chest Pain: No Hx Coronary Artery / Peripheral Vascular Disease: No Hx CHF / Valvular Disease: No Hx Palpitations: No - Pulmonary History Hx COPD: No Hx Asthma/Reactive Airway Disease: No Hx Recent Upper Respiratory Infection: No Hx Oxygen in Use at Home: No Hx Sleep Apnea: No Sleep Apnea Screening Result - Last Documented: Positive Pulmonary History Comment: HÉCTOR triggers - Neurologic History Hx Cerebrovascular Accident: No Hx Seizures: No Hx Dementia: No - Endocrine History Hx Diabetes: No - Renal History Hx Renal Disorders: No - Liver History Hx Hepatic Disorders: No - Neurological & Psychiatric Hx Hx Neurological and Psychiatric Disorders: No - Cancer History Hx Cancer: No - Congenital Disorder History Hx Congenital Disorders: No - GI History Hx Gastrointestinal Disorders: No - Other Health History Other Health History: wears glasses - Chronic Pain History Chronic Pain: Yes (right side) - Surgical History Prior Surgeries: pt states we have his surgeries in our records ANE Review of Systems Review of Systems: - Exercise capacity Exercise capacity: >=4 METS METS (RN): 6 METS - Pacemaker Pacemaker Type: Permanent Pacer/Defib Pacemaker Civil Engineer Helper: MedTest DX Pacemaker Model: Adapta L ADDRL1 Pacemaker Mode: AAIR<=>DDDR Pacemaker Set Rate: 45 Date Pacemaker Last Checked: 07/31/2018 ANE Patient History - Allergies Allergies/Adverse Reactions: No Known Allergies Allergy (Verified 09/29/18 16:44) - Home Medications Home medications: home medication list seen and reviewed Home Medications: Penicillin V Potassium [Pen Vk 500mg (*)] 12/21/17 [Last Taken 10/01/18] Herbals/Supplements -Info Only 10/02/18 [Last Taken 09/29/18] - NPO status NPO Status: no food or drink >8 hours NPO Since - Liquids (Date): 10/01/18 NPO Since - Liquids (Time): 18:30 NPO Since - Solids (Date): 10/01/18 NPO Since - Solids (Time): 18:30 - Anes Hx Anes Hx: no prior problems - Smoking Hx Smoking Status: Never smoked - Family Anes Hx Family Hx Anesthesia Complications: none ANE Labs/Vital Signs - Vital Signs Vital Signs: reviewed preoperatively; see RN documention for details Blood Pressure: 109/74 Heart Rate: 63 Respiratory Rate: 18 O2 Sat (%): 92 Height: 187.96 cm Weight: 83.915 kg ANE Physical Exam - Airway Neck exam: FROM Mallampati Score: Class 1 Mouth exam: normal dental/mouth exam - Pulmonary Pulmonary: clear to auscultation - Cardiovascular Cardiovascular: regular rate and rhythym - ASA Status ASA Status: III ANE Anesthesia Plan Anesthesia Plan: general endotracheal anesthesia Regional Anesthesia: single shot NB (Will clarify block with surgeon. Pt consented if needed.)
[2018-10-02] MEDS ORDERED: PROPOFOL 200 MG/20 ML VIAL ONE (07:12)
[2018-10-02] MEDS ORDERED: MIDAZOLAM 2 MG/2 ML VIAL ONE (07:12)
[2018-10-02] MEDS ORDERED: fentaNYL 100 MCG/2 ML INJ ONE (07:12)
--- NOTE | 2018-10-02 07:34 | PDHPUP ---
History & Physical Update H&P update statement: This history and physical update is based on an assessment of the patient which was completed after admission or registration (within 24 hours), but prior to the surgery/procedure. no change H&P update: H&P reviewed & patient examined (no change)
[2018-10-02] MEDS ORDERED: GLYCOPYRROLATE 0.2 MG/1 ML VIAL ONE (07:38)
[2018-10-02] MEDS ORDERED: ROCURONIUM 50 MG/5 ML VIAL ONE ×2 (08:30)
[2018-10-02] MEDS ORDERED: DEXAMETHASONE 4 MG/ML VIAL ONE (08:31)
[2018-10-02] MEDS ORDERED: HYDROmorphONE/DILAUDID 2 MG/ML INJ ONE ×2 (08:45→09:41)
[2018-10-02] MEDS ORDERED: DEPO METHYLPREDNISOLONE 40 MG/ML SDV ONE (08:54)
[2018-10-02] MEDS ORDERED: KETOROLAC 30 MG/1 ML SDV ONE (09:07)
[2018-10-02] MEDS ORDERED: ONDANSETRON 4 MG/2 ML VIAL ONE (09:07)
[2018-10-02] MEDS ORDERED: SUGAMMADEX SODIUM 200 MG/2 ML VIAL IVP ONE (09:08)
[2018-10-02] MEDS ORDERED: PHENYLEPHRINE HCL 100 MCG/ML SYR IVP PRN (09:09)
[2018-10-02] MEDS ORDERED: ONDANSETRON 4 MG/2 ML VIAL IVP PRN (09:09)
[2018-10-02] MEDS ORDERED: NALOXONE HCL 0.4 MG/ML INJ IVP PRN (09:09)
[2018-10-02] MEDS ORDERED: PROMETHAZINE HCL 25 MG/ML INJ IVP PRN (09:09)
[2018-10-02] MEDS ORDERED: MEPERIDINE 25 MG/0.5 ML AMP IVP PRN (09:09)
[2018-10-02] MEDS ORDERED: LR 500 ML IV PRN (09:09)
[2018-10-02] MEDS ORDERED: fentaNYL 100 MCG/2 ML INJ IVP PRN (09:09)
[2018-10-02] MEDS ORDERED: DIAZEPAM 5 MG/ML 1 ML SYR IVP PRN (09:09)
[2018-10-02] MEDS ORDERED: ALBUTEROL 3 ML DEYVIAL IH PRN (09:09)
[2018-10-02] MEDS ORDERED: ACETAMINOPHEN 500 MG TAB PO PRN (09:09)
[2018-10-02] MEDS ORDERED: METOCLOPRAMIDE 10 MG/2 ML VIAL IVP PRN (09:09)
[2018-10-02] MEDS: HYDROmorphONE/DILAUDID 2 MG/ML INJ IVP PRN ×3 (09:43→10:08)
[2018-10-02] MEDS ORDERED: oxyCODONE IR 5 MG TAB ONE ×2 (10:11→14:08)
[2018-10-02] MEDS: oxyCODONE IR 5 MG TAB PO PRN ×2 (10:12→14:10)
--- NOTE | 2018-10-02 10:27 | GOP ---
DATE OF OPERATION: 10/02/2018 SURGEON: Martin Pettit MD PRESCHOOL PARAPROFESSIONAL: TERESA Corado LSA ANESTHESIOLOGIST: Dr. Shannan Montez PREOPERATIVE DIAGNOSIS: Left shoulder impingement, acromioclavicular joint arthrosis. POSTOPERATIVE DIAGNOSIS: Left shoulder impingement, superior labral tear, acromioclavicular joint ar throsis. PROCEDURE PERFORMED: Left shoulder open Vita, left shoulder arthroscopy with superior labral debr idement, arthroscopic subacromial decompression and bursectomy. FINDINGS: Exam under anesthesia demonstrates a flexible shoulder. It is stable. On open Vita pr ocedure, the distal clavicle is arthritic. Basically, the articulation is [id number]. On arthrosc opy, the joint is preserved. The articular surface of the humeral head and glenoid looks fine. Ther e is a flap tear of the superior labrum that drapes into the joint that can be trimmed. The superior labrum is adherent to the glenoid rim without recess or compromise of the biceps anchor. Long head biceps is in good condition. The undersurface of the cuff looks intact. The superior surface of the cuff from the subacromial space shows some fraying consistent with impingement, but no soft spot or cuff tear. There is significant bony impingement anatomy. SPECIMENS: No specimen. ESTIMATED BLOOD LOSS: Minimal. INDICATIONS: The patient is a 68-year-old male who presents with left shoulder chronic pain and impi ngement findings. He has a pacemaker, so he does not have MRI studies, but he does have a CT arthrog kaylah that shows that the cuff does not have an obvious full-thickness tear. He has bony impingement a natomy. He has significant AC joint arthrosis. DESCRIPTION OF PROCEDURE: The patient was taken to the operating room, placed supine on the operatin g table, placed under general anesthetic with endotracheal intubation. He received 2 g of IV Ancef. He was rolled onto his right side on a walter bag with an axillary roll and all bony prominences were well padded. I placed the left extremity in 10 pounds of longitudinal traction, 40 degrees of abduct ion, 20 degrees of forward flexion. Chlorhexidine prep was used and the shoulder was prepped and pasha ped out for arthroscopy. Because of his pacemaker, I only used some bipolar cautery around the AC elsa int, did not use any cautery in the joint. I started with the Vita procedure. I preinjected my incision line and the joint with Marcaine wit h epinephrine. I made an anterior posterior incision of about 2.5 cm centered over the AC joint. Di ssection was carried down to subcutaneous tissue. I localized the joint with a needle. I opened the joint capsule with a scalpel and I made a T extension onto the clavicle, so I could elevate enough o f the capsule and periosteum to expose the distal clavicle. I removed about 5 mm of the distal clavi ricarda and smoothed the superior edge with heads, which had some osteophytes. I irrigated the joint. I closed the capsule with interrupted [id number] sutures of 2-0 Vicryl. Subcutaneous tissue was closed in layers. I used 3-0 Monocryl then 4-0 Prolene horizontal mattress sutures in the skin. I then placed a scope in the joint using standard anterior and posterior portals, introduced the shav er through the anterior portal, and trimmed the superior labrum to a stable base. The scope was then placed in the subacromial space. I established a lateral portal and I used a shaver to do a bursect redd and to clean the undersurface of the acromion so that I could use an acromionizer bur to flatten it to a type 1 anatomy and this bone resection released the coracoacromial ligament. I irrigated the subacromial space. I placed 10 cc of 0.5% plain Marcaine with 1 cc of Depo-Medrol 40 mg/cc in the s ubacromial space. The portals were closed with 4-0 Prolene. The wounds were all dressed with Betadi ne-soaked Adaptic, 4x4s, an ABD pad, and Hypafix tape, and he will go into a sling. COMPLICATIONS: There were no complications. DRAINS: No drains. COUNTS: All counts correct and the patient was taken in stable condition to recovery. My licensed loan officer assistant was a medical necessity for the open Vita procedure. /[id number]/MODL
--- NOTE | 2018-10-02 12:46 | PDHOMEO2F ---
Home Oxygen Face to Face Home Orders: I certify that a physician or a nurse practitioner or physician's commercial lines assistant has had a [id number]-[id number] encounter with this patient on the date of this order due to the diagnosis listed, which relates to the primary reason the patient requires home oxygen. Alternative treatments have been tried, or considered, and deemed ineffective. It is anticipated that supplemental oxygen will result in improvement with treatment. Home oxygen qualifying diagnosis: Hypoxemia after surgery, unable to wean off oxygen completely SpO2 on room air (%): 76 Frequency of home oxygen needed: continuous Home oxygen liters per minute: 2 lpm Home oxygen delivery device: nasal cannula Concentrator: Yes E-tanks for mobility and back up: Yes If ordering portable O2, is the patient mobile in the home?: Yes I certify that, based on these findings, the home oxygen is medically necessary for this patient for the following length of time. Length of time home oxygen needed: 1 week
[2018-10-02 13:47] VITALS: BP 104/58
== END 2018-10-02 15:20 | disposition home or self-care (01) ==
LOC: FSGY 06:01
PROVIDERS: ATTEND Orthopaedic Surgery
DX: M75.42 Impingement syndrome of left shoulder (principal); M75.82 Other shoulder lesions, left shoulder; M19.012 Primary osteoarthritis, left shoulder; R00.1 Bradycardia, unspecified; Z79.2 Long term (current) use of antibiotics; Z96.641 Presence of right artificial hip joint; Z95.0 Presence of cardiac pacemaker; Z88.0 Allergy status to penicillin
CPT/HCPCS: J0171; J0690; J1030; J1100; J1170; J1885; J2250; J2405; J2704; J3010